=== PATIENT | male | born 1940 | race Caucasian/White ===

== ENCOUNTER 2022-08-06 08:00 | Outpatient (CLI) | payer MEDICARE | END 2022-08-06 23:59 | disposition home or self-care (01) | LOC: LAB 08:00 | PROVIDERS: ATTEND Surgery | DX: Z01.812 Encounter for preprocedural laboratory examination (principal); Z20.822 Contact with and (suspected) exposure to COVID-19 ==

== ENCOUNTER 2022-08-08 06:42 | Day surgery (SDC) | payer MEDICARE ==
[2022-08-08] MEDS ORDERED: LIDOCAINE 1%-EPI 1:100,000 20 ML VIAL ONE (08:55)
[2022-08-08] MEDS ORDERED: BUPIVACAINE 0.25% 30 ML VIAL ONE (08:55)
[2022-08-08] MEDS ORDERED: HYDROMORPHONE 2 MG/1 ML DISP.SYRIN ONE (09:00)
[2022-08-08] MEDS ORDERED: ONDANSETRON 4 MG/2 ML VIAL ONE ×2 (11:17→12:00)
[2022-08-08] MEDS ORDERED: HYDROMORPHONE 1 MG/1 ML DISP.SYRIN ONE (11:17)
[2022-08-08] MEDS ORDERED: PROPOFOL 200 MG/20 ML BOTTLE ONE (12:00)
[2022-08-08] MEDS ORDERED: LIDOCAINE-MPF 2% 5 ML VIAL ONE (12:00)
[2022-08-08] MEDS ORDERED: DEXAMETHASONE SOD PHOSPHATE 4 MG INJ ONE (12:00)
[2022-08-08] MEDS ORDERED: IBUPROFEN 800 MG TABLET ONE (12:09)
[2022-08-08] MEDS ORDERED: GABAPENTIN 300 MG CAPSULE ONE (12:10)
[2022-08-08] MEDS ORDERED: ACETAMINOPHEN 325 MG TABLET ONE (12:10)
[2022-08-08] MEDS ORDERED: GABAPENTIN 300 MG CAPSULE PO ONE (12:30)
[2022-08-08] MEDS ORDERED: IBUPROFEN 800 MG TABLET PO ONE (12:30)
[2022-08-08] MEDS ORDERED: ACETAMINOPHEN 325 MG TABLET PO ONE (12:30)
== END 2022-08-08 13:02 | disposition home or self-care (01) ==
LOC: DS 06:42
PROVIDERS: ATTEND Surgery
DX: K40.30 Unilateral inguinal hernia, with obstruction, without gangrene, not specified as recurrent (principal); E78.00 Pure hypercholesterolemia, unspecified; I12.9 Hypertensive chronic kidney disease with stage 1 through stage 4 chronic kidney disease, or unspecified chronic kidney disease; N18.9 Chronic kidney disease, unspecified; I25.10 Atherosclerotic heart disease of native coronary artery without angina pectoris; Z79.899 Other long term (current) drug therapy; Z98.890 Other specified postprocedural states; Z87.891 Personal history of nicotine dependence
CPT/HCPCS: 49507; 71045; J3490 ×3; J1100; J2405 ×2; J1170 ×2; J7120; C1781; A4649; A4663